=== PATIENT | female | born 1975 | race Caucasian/White ===

== ENCOUNTER 2018-01-14 16:23 | Emergency (ER) | payer MEDICARE ==
[~2018-01-14] VITALS: Ht 172.7 cm; Wt 113.4 kg
[2018-01-14 16:25] VITALS: BP_SYST 163
[2018-01-14] MEDS ORDERED: ONDANSETRON 4 MG ODT TAB PO ONE (16:30)
[2018-01-14] MEDS ORDERED: fentaNYL CITRATE/PF 100 MCG/2 ML AMP IVP ONE (16:30)
[2018-01-14] MEDS ORDERED: fentaNYL CITRATE/PF 100 MCG/2 ML AMP IM ONE (17:00)
[2018-01-14] MEDS ORDERED: IBUPROFEN 800 MG TABLET PO ONE (18:30)
[2018-01-14 19:08] VITALS: BP_SYST 125
== END 2018-01-14 19:08 | disposition home or self-care (01) ==
LOC: SED 16:23
DX: S06.0X1A Concussion with loss of consciousness of 30 minutes or less, initial encounter (principal); S52.91XA Unspecified fracture of right forearm, initial encounter for closed fracture; S13.4XXA Sprain of ligaments of cervical spine, initial encounter; W19.XXXA Unspecified fall, initial encounter; Y93.89 Activity, other specified; Y92.89 Other specified places as the place of occurrence of the external cause; Y99.8 Other external cause status
CPT/HCPCS: 29125; 70450; 72125; 73030; 73090; 96372; 99284; J3010; Q0162

== ENCOUNTER 2019-05-08 10:08 | Emergency (ER) | payer BC, MEDICARE ==
[~2019-05-08] VITALS: Ht 172.7 cm; Wt 108.9 kg
[2019-05-08 10:08] VITALS: BP_SYST 148
[2019-05-08] MEDS ORDERED: IBUPROFEN 800 MG TABLET PO ONE (11:30)
[2019-05-08] MEDS ORDERED: HYDROcodone/ACETAMIN 5-325 MG TAB (NORCO/ VICODIN) PO ONE (11:30)
[2019-05-08 12:25] VITALS: BP_SYST 142
== END 2019-05-08 12:40 | disposition home or self-care (01) ==
LOC: SED 10:08
DX: S13.4XXA Sprain of ligaments of cervical spine, initial encounter (principal); R07.89 Other chest pain; V43.52XA Car driver injured in collision with other type car in traffic accident, initial encounter; Y93.89 Activity, other specified; Y92.410 Unspecified street and highway as the place of occurrence of the external cause; Y99.8 Other external cause status
CPT/HCPCS: 71045; 72040-TC; 81025; 99283